=== PATIENT | male | born 1970 | race Caucasian/White ===

== ENCOUNTER → 2018-11-12 | Outpatient (CLI) | payer BC | LOC: BMCIMAGING 10:17 | PROVIDERS: ATTEND Physician Assistant | DX: M25.551 Pain in right hip (principal); M25.552 Pain in left hip; Z96.641 Presence of right artificial hip joint; Z96.642 Presence of left artificial hip joint ==

== ENCOUNTER → 2018-11-30 | Outpatient (CLI) | payer BC | LOC: BMCIMAGING 11:10 | PROVIDERS: ATTEND Internal Medicine Rheumatology | DX: M48.02 Spinal stenosis, cervical region (principal); M25.78 Osteophyte, vertebrae; M48.54XA Collapsed vertebra, not elsewhere classified, thoracic region, initial encounter for fracture; M85.88 Other specified disorders of bone density and structure, other site; M51.34 Other intervertebral disc degeneration, thoracic region; M41.86 Other forms of scoliosis, lumbar region; R10.2 Pelvic and perineal pain; Z96.643 Presence of artificial hip joint, bilateral; Z87.81 Personal history of (healed) traumatic fracture ==

== ENCOUNTER → 2018-12-26 | Outpatient (CLI) | payer BC | LOC: FIMAGING 09:08 | PROVIDERS: ATTEND Orthopaedic Surgery | PROC: CP161ZZ Planar Nuclear Medicine Imaging of Pelvis using Technetium 99m (Tc-99m) (ICD-10-PCS; principal; 2018-12-26) | DX: M25.552 Pain in left hip (principal); Z96.642 Presence of left artificial hip joint | CPT/HCPCS: 78315; A9503 ==